=== PATIENT | male | born 1940 | race Caucasian/White ===

== ENCOUNTER 2016-11-07 13:05 | Emergency (ER) | payer OTHER ==
[~2016-11-07] VITALS: Ht 167.6 cm; Wt 65.0 kg
[~2016-11-07 13:05] MED LIST: ALPR0.254 PO; AMLO-218 PO; BENA40TA54 PO; CALC1CAP PO; CLOT21CR6 TOP; DICY20TA56 PO; DIPH-387 PO; DOCU250C24 PO; HYDR-1666 PO; METF500T4 PO; MULT1TAB59 PO; NAPR-683 PO; OMEP10CA2 PO; RANI300T PO; SAW450CA2 PO; SIMV20TA PO; TRAZ50TA18 PO; TRIA-17 PO; TYLENOL PO; [UNRECOGNIZED DRUG - CODE] PO; [UNRECOGNIZED DRUG - CODE] PO; [UNRECOGNIZED DRUG - CODE] PO
[2016-11-07 13:09] VITALS: Ht 167.6 cm; Wt 65.0 kg
[2016-11-07] MEDS ORDERED: HYDROCODONE/APAP (5/325) TAB PO ONE (14:00)
--- NOTE | 2016-11-07 15:24 | RADRPT ---
PROCEDURE: XR Wrist. CLINICAL INDICATION: Left wrist pain, fall TECHNIQUE: AP, lateral and oblique views of the left wrist were performed. COMPARISON: No prior studies are available for comparison. FINDINGS: There is an acute impacted and mild to moderately dorsally angulated distal radial metaphysis fractu re. There is probable nondisplaced intra-articular extension. There is a mildly displaced ulnar styloid fracture. There is background osteopenia and diffuse soft tissue swelling. There are vascular calcifications. IMPRESSION: 1. Acute impacted mild to moderately dorsal angulated distal radial metaphysis fracture with intra-a rticular extension. 2. Acute mildly displaced ulnar styloid fracture. 3. Osteopenia and soft tissue swelling. RPTAT: [facility] .Rajesh Sandoval MD, MD Date Time Electronically viewed and signed by .Rajesh Sandoval MD, on 11/07/2016 15:24 .K/
--- NOTE | 2016-11-07 15:26 | RADRPT ---
PROCEDURE: XR Left Hand. CLINICAL INDICATION: Left hand pain, trauma, fall TECHNIQUE: Three views of the left hand were obtained. COMPARISON: No prior studies are available for comparison. FINDINGS: There is an acute impacted and mild to moderately dorsally angulated distal radial metaphysis fractu re. There is probable nondisplaced intra-articular extension. There is a mildly displaced ulnar styloid fracture. There is background osteopenia and diffuse soft tissue swelling. There are vascular calcifications. IMPRESSION: 1. Acute impacted mild to moderately dorsal angulated distal radial metaphysis fracture with intra-a rticular extension. 2. Acute mildly displaced ulnar styloid fracture. 3. Osteopenia and soft tissue swelling. RPTAT: [facility] .Rajesh Sandoval MD, MD Date Time Electronically viewed and signed by .Rajesh Sandoval MD, on 11/07/2016 15:26 .K/
--- NOTE | 2016-11-07 15:37 | ERD ---
ER Documentation Chief Complaint Date/Time DATE: 11/07/16 TIME: 15:30 Chief Complaint lt hand pain ,lt eyebrow abrasion , lt rib pain s/p trip and fall yesterday HPI This a 76 year-old male who presents to the emergency department today for left hand pain, left-sided rib pain and some back pain after he tripped and fell yesterday. Patient states that he was on his way over to his friends when he tripped over a sprinkler head. States he was able to drive home from his friend 's house. States he has a previous history of back pain. States he occasionally takes Tylenol for pain. Denies any loss of consciousness or being on blood thinners. Denies any fevers or chills or nausea or vomiting. ROS All systems reviewed and are negative except as per history of present illness. Medications Home Meds Active Scripts Acetaminophen* (Tylophen*) 500 Mg Capsule, 1 CAP PO Q6H Y for PAIN AND OR ELEVATED TEMP, #30 CAP Prov:ALEXANDRA HARVEY PA-C 11/07/16 Naproxen* (Naprosyn*) 500 Mg Tablet, 500 MG PO BID Y for PAIN AND/OR INFLAMMATION, #30 TAB Prov:ALEXANDRA HARVEY PA-C 11/07/16 Hydrocodone/Acetaminophen (Kelly 5-325 Tablet) 1 Each Tablet, 1 TAB PO Q6H Y for PAIN, #15 TAB Prov:ALEXANDRA HARVEY PA-C 11/07/16 Reported Medications Naproxen* (Naproxen*) 250 Mg Tablet, 250 MG PO BID 11/18/10 Hydrocodone Bit/Acetaminophen (Vicodin 5/500 Tablet) 1 Tab Tablet, 1 TAB PO TID MEALS 11/18/10 Trazodone Hcl* (Trazodone Hcl*) 50 Mg Tablet, 50 MG PO QHS 11/18/10 Calcium Carb/Mag Oxide/Vit D3 (Ra [place]al Calcium Capsule) 1 Each Capsule, 1 TAB PO 3 TIME WEEKY 11/18/10 Saw [place] Fruit (Saw [place]) 450 Mg Capsule, 1 TAB PO Q AM 11/18/10 Diphenhydramine Hcl (Diphenhydramine Hcl) 50 Mg Capsule, 50 MG PO QHS 11/18/10 [Tylenol] No Conflict Check, PO BID 11/18/10 Multivitamins* (Multivitamins*) 1 Tab Tablet, 1 TAB PO DAILY 11/18/10 Ascorbic Acid (Vitamin C W/Lucero Hips) 500 Mg Tablet, 1 TAB PO DAILY 11/18/10 Ranitidine Hcl* (Ranitidine Hcl*) 300 Mg Tablet, 300 MG PO QHS 11/18/10 Clotrimazole (Clotrimazole 3) 21 Gm Cream.appl, 1 TOP QHS 11/18/10 Omeprazole* (Prilosec*) 10 Mg Cap, 20 MG PO TID MEALS 11/18/10 Docusate Sodium* (DSS*) 250 Mg Capsule, 250 MG PO 1-2 DAILY PRN 11/18/10 Diphenoxylate Hcl/Atrop Sulf (Diphenoxylate-Atropine Tab) 1 Tab Tablet, 1 TAB PO QID PRN 11/18/10 Hydrocortisone (Colocort) 100 Mg/60 Ml Enema, 1 TAB PO BID 11/18/10 Dicyclomine Hcl (Dicyclomine Hcl) 20 Mg Tablet, 20 MG PO TID MEALS 11/18/10 Simvastatin* (Zocor*) 20 Mg Tablet, 20 MG PO QHS 11/18/10 Alprazolam (Xanax) 0.25 Mg Tab, 0.25 MG PO TID PRN 11/18/10 Metformin* (Glucophage*) 500 Mg Tab, 500 MG PO BID 11/18/10 Triamterene/Hydrochlorothiazid (Triamterene-Hctz 75-50MG Tab) 1 Tab Tablet, MG PO Q AM 11/18/10 Amlodipine Besylate* (Norvasc*) 10 Mg Tablet, 10 MG PO DAILY 11/18/10 Benazepril Hcl* (Lotensin*) 40 Mg Tablet, 40 MG PO QHS 11/18/10 PMhx/Soc History of Surgery: Yes (TURP, L KNEE SURGERY) Anesthesia Reaction: No Hx Neurological Disorder: No Hx Respiratory Disorders: Yes (HX OF BRONCHITIS) Hx Cardiac Disorders: Yes (HTN) Hx Psychiatric Problems: Yes (ANXIETY) Hx Miscellaneous Medical Probl: No Hx Alcohol Use: No Hx Substance Use: No Hx Tobacco Use: No Physical Exam Vitals Vital Signs Date Time Temp Pulse Resp B/P Pulse Ox O2 Delivery O2 Flow Rate FiO2 11/07/16 13:09 97.8 85 18 137/68 98 Physical Exam Const: Pleasant, no acute distress Head: Abrasion left eyebrow. No evidence of hematoma. Nontender orbits or facial bones Eyes: Normal Conjunctiva. PERRLA. EOM intact. ENT: Normal External Ears, Nose and Mouth. Neck: Full range of motion..~ No meningismus. Resp: Clear to auscultation bilaterally no absent breath sounds. No wheezing. Tenderness palpation anterior aspect left side of ribs Cardio: Regular rate and rhythm, no murmurs Abd: Soft, non tender, non distended. Normal bowel sounds Skin: No petechiae or rashes Back: No midline or flank tenderness. Left-sided tenderness and thoracic area. No midline tenderness MSK left hand and wrist with obvious deformity. Unable to assess range of motion secondary to pain. Moderate diffuse effusion over dorsal aspect of hand and distal radius and ulna. Pulses 2+. Distal neurovascularly intact. Good cap refill. Full active range of motion of elbow. Neur: Awake and alert Psych: Normal Mood and Affect Results 24 hrs Current Medications Medications (Trade) Dose Ordered Sig/Bk Route PRN Reason Start Time Stop Time Status Last Admin Dose Admin Acetaminophen/ Hydrocodone Bitart (Kelly (5/325)) 1 tab ONCE ONCE PO 11/07/16 14:00 11/07/16 14:01 DC 11/07/16 13:48 Ketorolac Tromethamine (Toradol) 30 mg ONCE STAT IM 11/07/16 16:23 11/07/16 16:24 DC DIAGNOSTIC IMAGING REPORT Patient: ZEV VYAS : 1940 Age: 76 Sex: M MR #: [id number] DOS: 11/07/16 0000 Ordering MD: ALEXANDRA HARVEY PA-C Location: E Room/Bed: AMENDMENT: 11/07/2016 3:39:51 PM James Mueller M.D IMPRESSION: Slightly displaced fractures of the left posterior lateral fifth and sixth ribs. PROCEDURE: Left rib series CLINICAL INDICATION: Left rib pain status post fall TECHNIQUE: Two views of the left ribs an AP view of the chest were obtained. COMPARISON: Chest x-ray from 11/07/2016 FINDINGS: Slightly displaced fractures of the left posterior lateral fifth and sixth ribs are seen. No other displaced rib fracture is seen. No osteolytic or osteoblastic lesion is seen. The soft tissue structures are intact. The lung volumes are low with bibasilar compressive atelectasis. The visualized portions of the chest otherwise appear unremarkable. IMPRESSION: No acute displaced left rib fracture. RPTAT: [employer] Sd Mueller Physician Date Time Electronically viewed and signed by Sd Mueller Physician on 11/07/2016 15 :39 / CC: ALEXANDRA HARVEY PA-C DIAGNOSTIC IMAGING REPORT Patient: ZEV VYAS : 1940 Age: 76 Sex: M MR #: [id number] DOS: 11/07/16 0000 Ordering MD: ALEXANDRA HARVEY PA-C Location: [facility] Room/Bed: AMENDMENT: 11/07/2016 4:00:14 PM James Mueller M.D Left posterior lateral fifth and sixth rib fractures are suggested. No radiographic evidence of a pneumothorax is seen. Results were discussed with Alexandra Harvey at 11/07/2016 3:59:50 PM PROCEDURE: XR Chest. CLINICAL INDICATION: Chest pain status post fall TECHNIQUE: A single portable view of the chest was obtained. COMPARISON: None FINDINGS: The aorta is tortuous and atherosclerotic. The cardiomediastinal silhouette is otherwise within normal limits. The lungs and pleural spaces are clear. The soft tissues and osseous structures demonstrate benign age related senescent changes. IMPRESSION: No acute cardiopulmonary disease. RPTAT: [employer] Sd Mueller Physician Date Time Electronically viewed and signed by Physician Alannah on 11/07/2016 16 :00 / CC: ALEXANDRA HARVEY PA-C DIAGNOSTIC IMAGING REPORT Patient: ZEV VYAS : 1940 Age: 76 Sex: M MR #: [id number] DOS: 11/07/16 0000 Ordering MD: ALEXANDRA HARVEY PA-C Location: [facility] Room/Bed: PROCEDURE: XR Left Hand. CLINICAL INDICATION: Left hand pain, trauma, fall TECHNIQUE: Three views of the left hand were obtained. COMPARISON: No prior studies are available for comparison. FINDINGS: There is an acute impacted and mild to moderately dorsally angulated distal radial metaphysis fracture. There is probable nondisplaced intra-articular extension. There is a mildly displaced ulnar styloid fracture. There is background osteopenia and diffuse soft tissue swelling. There are vascular calcifications. IMPRESSION: 1. Acute impacted mild to moderately dorsal angulated distal radial metaphysis fracture with intra-articular extension. 2. Acute mildly displaced ulnar styloid fracture. 3. Osteopenia and soft tissue swelling. RPTAT: [facility] .Rajesh Sandoval MD, MD Date Time Electronically viewed and signed by .Rajesh Sandoval MD, MD on 11/07/2016 15: 26 .K/ CC: ALEXANDRA HARVEY PA-C DIAGNOSTIC IMAGING REPORT Patient: ZEV VYAS : 1940 Age: 76 Sex: M MR #: [id number] DOS: 11/07/16 0000 Ordering MD: ALEXANDRA HARVEY PA-C Location: [facility] Room/Bed: PROCEDURE: XR Wrist. CLINICAL INDICATION: Left wrist pain, fall TECHNIQUE: AP, lateral and oblique views of the left wrist were performed. COMPARISON: No prior studies are available for comparison. FINDINGS: There is an acute impacted and mild to moderately dorsally angulated distal radial metaphysis fracture. There is probable nondisplaced intra-articular extension. There is a mildly displaced ulnar styloid fracture. There is background osteopenia and diffuse soft tissue swelling. There are vascular calcifications. IMPRESSION: 1. Acute impacted mild to moderately dorsal angulated distal radial metaphysis fracture with intra-articular extension. 2. Acute mildly displaced ulnar styloid fracture. 3. Osteopenia and soft tissue swelling. RPTAT: [facility] .Rajesh Sandoval MD, MD Date Time Electronically viewed and signed by .Rajesh Sandoval MD, MD on 11/07/2016 15: 24 .K/ CC: ALEXANDRA HARVEY PA-C Procedures/MDM This is a 76-year-old male who presents to the emergency department today for left-sided rib pain, left wrist and hand pain and back pain after a mechanical fall yesterday. Given patient's age and trauma and obvious deformity of his wrist I did obtain images. Patient did have an abrasion on his head. He denies any loss of consciousness. He has had no nausea or vomiting. He is answering all questions appropriately. He has no focal neurologic deficits and no gait ataxia and I do not feel the patient requires a head CT scan at this time. Low suspicion for acute hemorrhage, mass, abscess, meningitis. The radiology report images of the dedicated left ribs show slightly displaced fractures of the left posterior lateral fifth and sixth ribs seen. There is no other displaced rib fracture seen. Chest x-ray shows no acute cardiopulmonary disease. There is no radiographic evidence of a pneumothorax seen. Lungs and pleural spaces are clear. Images of the left hand and wrist show an acute impacted mild to moderately dorsal angulated distal radial metaphysis fracture with intra-articular extension. There is an acute mildly displaced ulnar styloid fracture. There is osteopenia and soft tissue swelling. This is likely the source of the patient's pain and swelling. Patient was given Kelly and Toradol here in the emergency department. He will be given a short course of Kelly, Tylenol and Naprosyn for home. Patient was placed in a splint. He was distal neurovascular intact pre-and post splint application. Patient was given a sling Patient does have a primary care doctor at the [facility] and he states that he has an appointment with him on November 22. I have explained to the patient that he does need to call the doctor first thing in the morning and notify him of his fractures so that he may be seen earlier. Patient understood. Note patient indicated his tetanus was updated. Patient was seen and evaluated by Dr. Alvarez and he is in agreement with the plan. Departure Diagnosis: Primary Impression: Wrist fracture Encounter type: initial encounter Fracture type: closed Laterality: left Qualified Code: S62.102A - Wrist fracture, left, closed, initial encounter Additional Impression: Rib fractures Encounter type: initial encounter Rib fracture type: multiple ribs Fracture type: closed Laterality: left Qualified Code: S22.42XA - Closed fracture of multiple ribs of left side, initial encounter Condition: Fair PROALEXANDRA ALFONSO PA-C Nov 07, 2016 15:32
--- NOTE | 2016-11-07 15:38 | RADRPT ---
AMENDMENT: 11/07/2016 3:59:19 PM James Mueller M.D Results were discussed with Alexandra Barba at 11/07/2016 3:59:18 PM AMENDMENT: 11/07/2016 3:39:51 PM James Mueller M.D IMPRESSION: Slightly displaced fractures of the left posterior lateral fifth and sixth ribs. PROCEDURE: Left rib series CLINICAL INDICATION: Left rib pain status post fall TECHNIQUE: Two views of the left ribs an AP view of the chest were obtained. COMPARISON: Chest x-ray from 11/07/2016 FINDINGS: Slightly displaced fractures of the left posterior lateral fifth and sixth ribs are seen. No other displaced rib fracture is seen. No osteolytic or osteoblastic lesion is seen. The soft tissue stru ctures are intact. The lung volumes are low with bibasilar compressive atelectasis. The visualized p ortions of the chest otherwise appear unremarkable. IMPRESSION: No acute displaced left rib fracture. RPTAT: [facility] Physician Alannah Date Time Electronically viewed and signed by Physician Alannah on 11/07/2016 15:59 /
--- NOTE | 2016-11-07 15:50 | RADRPT ---
AMENDMENT: 11/07/2016 4:00:14 PM James Mueller M.D Left posterior lateral fifth and sixth rib fractures are suggested. No radiographic evidence of a p neumothorax is seen. Results were discussed with Alexandra Barba at 11/07/2016 3:59:50 PM PROCEDURE: XR Chest. CLINICAL INDICATION: Chest pain status post fall TECHNIQUE: A single portable view of the chest was obtained. COMPARISON: None FINDINGS: The aorta is tortuous and atherosclerotic. The cardiomediastinal silhouette is otherwise within nor mal limits. The lungs and pleural spaces are clear. The soft tissues and osseous structures demons trate benign age related senescent changes. IMPRESSION: No acute cardiopulmonary disease. RPTAT: [facility] Physician Alannah Date Time Electronically viewed and signed by Sd Mueller Physician on 11/07/2016 16:00 /
[2016-11-07] MEDS ORDERED: KETOROLAC 30 MG INJ IM STA (16:23)
[2016-11-07] MEDS ORDERED: HYDR-906 PO (16:29)
[2016-11-07] MEDS ORDERED: NAPR-260 PO (16:29)
[2016-11-07] MEDS ORDERED: ACET500C5 PO (16:30)
== END 2016-11-07 17:18 | disposition home or self-care (01) ==
LOC: FTE 13:05
DX: S59.292A Other physeal fracture of lower end of radius, left arm, initial encounter for closed fracture (principal); S22.42XA Multiple fractures of ribs, left side, initial encounter for closed fracture; I10 Essential (primary) hypertension; W01.0XXA Fall on same level from slipping, tripping and stumbling without subsequent striking against object, initial encounter; Y92.89 Other specified places as the place of occurrence of the external cause; Z79.84 Long term (current) use of oral hypoglycemic drugs
CPT/HCPCS: 29125; 71010; 71100; 73110; 73130; 96372; 99284; J1885